=== PATIENT | female | born 1955 | race Caucasian/White ===

== ENCOUNTER 2018-01-13 10:20 | Day surgery (SDC) | payer MEDICARE, OTHER ==
[2018-01-13] MEDS ORDERED: MIDAZOLAM 1 MG/ML 2 ML INJ (11:56)
[2018-01-13] MEDS ORDERED: PROPOFOL 20 ML (11:56)
[2018-01-13] MEDS ORDERED: ETOMIDATE 20 MG INJ (11:56)
[2018-01-13] MEDS ORDERED: LIDOCAINE 2% (SDV) 5 ML INJ (11:56)
== END 2018-01-13 14:03 | disposition home or self-care (01) ==
LOC: GIL 10:20
DX: R19.4 Change in bowel habit (principal); K29.30 Chronic superficial gastritis without bleeding; K64.8 Other hemorrhoids; K44.9 Diaphragmatic hernia without obstruction or gangrene; K21.9 Gastro-esophageal reflux disease without esophagitis; I10 Essential (primary) hypertension; M06.9 Rheumatoid arthritis, unspecified
CPT/HCPCS: 43239; 88305; 88312